=== PATIENT | male | born 1970 | race Hispanic/Latino ===

== ENCOUNTER 2019-05-16 13:15 | Emergency (ER) | payer OTHER ==
[2019-05-16 13:51] VITALS: TEMP 97.1
[2019-05-16] MEDS ORDERED: LIDOCAINE 2 % GEL 5 ML TUBE TOP ONE (14:05)
--- NOTE | 2019-05-16 14:11 | ED.PDOC ---
History of Present Illness - General Chief Complaint: Laceration Stated Complaint: scalp laceration/right foot pain Time Seen by Provider: 05/16/19 14:03 Source: patient Exam Limitations: no limitations - History of Present Illness Initial Comments: Amarjit Orozco 48 y/o male came to ER stating that at work metal pipe accidentally fell on top of his head and right foot with bleeding on his head and dull ache right foot.No LOC,no blurry vision,no neck pains,N/V. Timing/Duration: 1-3 hours Severity: moderate Improving Factors: nothing Worsening Factors: nothing Associated Symptoms: other - see hpi Home Medications: Ambulatory Orders Acetaminophen W/ Codeine [Tylenol/Codeine #4 300-60 mg] 1 ea PO ONCE PRN #10 tab 05/16/19 Review of Systems - Review of Systems Musculoskeletal: States: see HPI, other - foot pain Skin: States: see HPI, other - scalp laceration All other Systems: Reviewed and Negative, No Change from Baseline Past Medical History (General) - Patient Medical History Surgical History: no surgical history - Vaccination History Hx Tetanus, Diphtheria Vaccination: Yes - 2 years ago Family Medical History - Family History Mother Family History: No Known Physical Exam - Physical Exam General Appearance: Alert, Comfortable, No apparent distress Eye Exam: bilateral normal Ears, Nose, Throat: hearing grossly normal, normal ENT inspection Neck: non-tender, full range of motion, supple, normal inspection Respiratory: chest non-tender, lungs clear, normal breath sounds, no respiratory distress Cardiovascular/Chest: normal peripheral pulses, regular rate, rhythm, no murmur Peripheral Pulses: radial,right: 2+, radial,left: 2+ Gastrointestinal/Abdominal: non tender, soft, no organomegaly Back Exam: no CVA tenderness, no vertebral tenderness Extremity: other - tenderness right mid foot with slight pain on plantar and dorsiflexion Neurologic: alert, oriented x 3 Skin Exam: normal color, warm/dry Progress - Progress Progress: 05/16/19 14:14 Vital Signs - 8 hr 05/16/19 13:16 Temperature 97.1 F L Pulse Rate [ 76 Left Brachial] Respiratory 20 Rate Blood Pressure 131/90 [Left Arm] O2 Sat by Pulse 97 Oximetry 05/16/19 15:59 Discuss x-ray result with patient - EKG/XRAY/CT XRAY: right foot no fracture Procedures - Laceration/Wound Repair Head Wound Length (cm): 1.5 - scalp Wound's Depth, Shape: superficial Wound Explored: no foreign body removed Irrigated w/ Saline (cc's): 30 Volume Anesthetic (cc's): 2.5 - lidocaine gel Wound Repaired With: jt Number of Sutures: 2 Layer Closure?: No Departure - Departure Clinical Impression: Contusion of scalp Qualifiers: Encounter type: initial encounter Qualified Code(s): S00.03XA - Contusion of scalp, initial encounter Laceration of scalp Qualifiers: Encounter type: initial encounter Qualified Code(s): S01.01XA - Laceration without foreign body of scalp, initial encounter Contusion of foot, right Qualifiers: Encounter type: initial encounter Qualified Code(s): S90.31XA - Contusion of right foot, initial encounter Time of Disposition: 15:56 Disposition: Discharge to Home or Self Care Condition: Good Departure Forms: ED Discharge - Pt. Copy, Patient Portal Self Enrollment Instructions: DI for Laceration Repair -- [place], Contusion (DC) Prescriptions: Acetaminophen W/ Codeine [Tylenol/Codeine #4 300-60 mg] 1 ea PO ONCE PRN #10 tab PRN Reason: Pain Home Medications: Ambulatory Orders Acetaminophen W/ Codeine [Tylenol/Codeine #4 300-60 mg] 1 ea PO ONCE PRN #10 tab 05/16/19 Additional Instructions: Removal of jt 23 May 2019 [facility] [place];Return to Emergency room as needed
[2019-05-16 16:09] VITALS: BP 125/84; O2SAT 100
--- NOTE | 2019-05-16 18:14 | RAD ---
EXAM DESCRIPTION: Foot,Right 2 Views CLINICAL HISTORY: pain/metal pipe fell on his foot COMPARISON: None FINDINGS: Two x-ray views of the right foot were submitted. Questionable cortical offset at the distal fourth metatarsal bone worrisome for a nondisplaced fracture. An oblique view recommended for further evaluation. There is no dislocation. Bone mineralization is within normal limits. There is no radiopaque foreign body material. IMPRESSION: Questionable cortical offset at the distal fourth metatarsal bone worrisome for a nondisplaced fracture. An oblique view recommended for further evaluation. Electronically signed by: Sidney Jamison MD 05/16/2019 6:13 PM CDT
== END 2019-05-16 16:13 | disposition home or self-care (01) ==
LOC: ER 13:15
DX: S01.01XA Laceration without foreign body of scalp, initial encounter (principal); S90.31XA Contusion of right foot, initial encounter; W20.8XXA Other cause of strike by thrown, projected or falling object, initial encounter; Y99.0 Civilian activity done for income or pay; Y92.69 Other specified industrial and construction area as the place of occurrence of the external cause